=== PATIENT | female | born 1960 | race Caucasian/White ===

== ENCOUNTER 2017-03-31 10:30 | Outpatient (CLI) | payer OTHER ==
--- NOTE | 2017-04-20 12:08 | MMO ---
BILATERAL SCREENING MAMMOGRAM: HISTORY: A 57-year-old female for screening mammography. COMPARISON: None available. FINDINGS: Bilateral MLO and CC views of the breasts show predominantly fatty-replaced breast parenchyma. There is no evidence of suspicious mass, suspicious clustered microcalcifications, or area of architectura l distortion. Interpretation of this mammogram was performed with the assistance of computer-aided detection. IMPRESSION: BI-RADS category 1 - negative. Annual screening mammography is recommended. BIRADS 1: Negative Routine annual screening mammography (for women over age 40) POS: KIERA
== END 2017-03-31 10:31 | disposition home or self-care (01) ==
LOC: SCSMAMMO 10:30
PROVIDERS: ATTEND Family Medicine
DX: Z12.31 Encounter for screening mammogram for malignant neoplasm of breast (principal)
CPT/HCPCS: 77067

== ENCOUNTER 2018-11-23 11:44 | Outpatient (CLI) | payer OTHER ==
--- NOTE | 2018-11-23 12:18 | RAD ---
EXAM: Chest Two Views 11/23/2018 12:16 PM HISTORY: Night sweats COMPARISON: None. FINDINGS: Heart: Normal in size and contour. Pulmonary vessels: Normal. Costophrenic angles: Clear. Lungs: No confluent pneumonia, overt edema, pleural effusion, or other acute process. Pneumothorax: None. Osseous structures:Intact. Additional findings: None. IMPRESSION: No significant acute intrathoracic disease.
== END 2018-11-23 11:45 | disposition home or self-care (01) ==
LOC: BICRAD 11:44
PROVIDERS: ATTEND Family Medicine
DX: R61 Generalized hyperhidrosis (principal)
CPT/HCPCS: 71046

== ENCOUNTER 2018-12-20 13:44 | Outpatient (CLI) | payer OTHER ==
--- NOTE | 2018-12-20 15:26 | MRI ---
Brain MRI with and without contrast: 12/20/2018 COMPARISON: None HISTORY: Diminished since of smell, anosmia TECHNIQUE: Multiplanar multisequence MR imaging of the brain obtained with and without contrast FINDINGS: The diffusion weighted imaging demonstrates no evidence for acute infarction. The axial gradient echo imaging demonstrates no evidence for intracranial hemorrhage. Arterial flow voids at the axial level of the skull base appear grossly unremarkable on the T2-weight ed imaging. There is mild superior cerebellar volume loss. No midline shift or mass effect is seen. No ventricular enlargement. The imaged paranasal sinuses and mastoid air cells are well aerated. Incidental note is made of enlargement of bilateral Meckel's cave which demonstrates a patulous appea maco posteriorly, evidence of bilateral petrous apex cephaloceles, right larger than left. No abnormality is seen along the course of the cribriform plate. The postcontrast imaging demonstrate s no abnormal enhancement within the brain parenchyma. There is a punctate focus of enhancement within the lateral aspect of the internal auditory canal on the left measuring 2 mm, suggesting a ves tibular schwannoma. IMPRESSION: Incidental findings as described above. This includes a tiny focus of enhancement within the internal auditory canal on the left suggesting a vestibular schwannoma. Incidentally noted bilateral petrous apex cephaloceles present as well.
== END 2018-12-20 13:45 | disposition home or self-care (01) ==
LOC: BICMRI 13:44
PROVIDERS: ATTEND Otolaryngology Plastic Surgery within the Head & Neck
DX: R43.0 Anosmia (principal); Q01.8 Encephalocele of other sites; G50.8 Other disorders of trigeminal nerve
CPT/HCPCS: 70553